=== PATIENT | female | born 1970 | race Caucasian/White ===

== ENCOUNTER → 2024-04-09 16:49 | Outpatient (REF) | payer OTHER, SELFPAY | LOC: DHSLP 16:49 | PROVIDERS: FAMILY PHYSICIAN Physician Assistant | DX: G47.33 Obstructive sleep apnea (adult) (pediatric) (principal) | CPT/HCPCS: 95800 ==

== ENCOUNTER → 2024-10-24 13:39 | Outpatient (REF) | payer OTHER, SELFPAY | LOC: DHSLP 13:39 | PROVIDERS: ATTENDING PHYSICIAN Internal Medicine | DX: G47.33 Obstructive sleep apnea (adult) (pediatric) (principal) | CPT/HCPCS: 95811 ==